=== PATIENT | female | born 1955 | race Caucasian/White ===

== ENCOUNTER 2020-07-25 10:35 | Day surgery (SDC) | payer OTHER, SELFPAY ==
[2020-07-22 11:39] LABS: BASOPHILS % (AUTO) 0.6 % (0.0-2.0); HEMATOCRIT 33.8 % (36-48); HEMOGLOBIN 11.1 g/dL (12.0-16.0); LYMPHOCYTES # (AUTO) 1.5 K/uL (1.0-5.5); LYMPHOCYTES % (AUTO) 22.4 % (20.5-51.5); MEAN CORPUSCULAR HEMOGLOBIN 28 pg (27-31); MEAN CORPUSCULAR HGB CONC 33 % (32-36); MEAN CORPUSCULAR VOLUME 84 fL (79.0-98.0); MONOCYTES # (AUTO) 0.4 K/uL (0.0-1.0); MONOCYTES % (AUTO) 5.9 % (1.7-9.3); NEUTROPHILS # (AUTO) 4.7 K/uL (1.8-7.7); NEUTROPHILS % (AUTO) 71.1 % (40.0-70.0); PLATELET COUNT (AUTO) 243 K/uL (130-430); RED BLOOD CELL COUNT(AUTO) 4.02 MIL/uL (4.2-6.2); RED CELL DISTRIBUTION WIDTH 14.7 % (9.0-15.0); WHITE BLOOD COUNT (AUTO) 6.6 K/uL (4.8-10.8)
[2020-07-22 11:46] LABS: BILIRUBIN,URINE NEGATIVE (NEGATIVE); BLOOD, URINE NEGATIVE (NEGATIVE); CLARITY/URINE CLEAR (CLEAR); COLOR,URINE YELLOW (YELLOW); GLUCOSE,URINE NEGATIVE (NEGATIVE); KETONES,URINE NEGATIVE (NEGATIVE); LEUKOCYTE ESTERASE ,URINE NEGATIVE (NEGATIVE); NITRITE, URINE NEGATIVE (NEGATIVE); PROTEIN URINE NEGATIVE (NEGATIVE); UROBILINOGEN,URINE 0.2 (0.2-1.0)
[2020-07-22 11:49] LABS: CALCIUM 9.4 mg/dL (8.4-11.0); CREATININE 0.82 mg/dL (0.55-1.30); POTASSIUM 4.2 mmol/L (3.5-5.1)
[2020-07-22 12:01] LABS: INR 0.9 (0.8-1.2); PROTHROMBIN TIME 9.4 SECS (9.5-12.5)
[~2020-07-25] VITALS: Ht 167.6 cm; Wt 58.5 kg
[~2020-07-25 10:35] MED LIST: GLIP10TA11 PO; GLU500 PO
[2020-07-25] MEDS ORDERED: LR 1,000 ML IV.SOLN IV ONE (11:41)
[2020-07-25] MEDS ORDERED: GLYCOPYRROLATE 0.2 MG/ML VIAL IJ ONE (11:41)
[2020-07-25] MEDS ORDERED: PROPOFOL 200MG/ 20ML VIAL (DIPRIVAN) IV ONE (11:41)
[2020-07-25] MEDS ORDERED: METOCLOPRAMIDE HCL 10 MG/2 ML VIAL IVP ONE (11:41)
[2020-07-25] MEDS ORDERED: ONDANSETRON HCL 4 MG/2 ML VIAL IVP ONE (11:41)
[2020-07-25] MEDS ORDERED: NS IRRIG SOLN 1000 ML IR ONE (11:41)
[2020-07-25] MEDS ORDERED: BUPIVACAINE /PF 0.25% 30 ML VIAL INJ ONE (11:41)
[2020-07-25] MEDS ORDERED: LIDOCAINE 1% 10 MG/ML, 20 ML MDV INJ ONE (11:41)
[2020-07-25] MEDS ORDERED: ePHEDrine sulfate 50 MG/ML VIAL IVP ONE (11:41)
[2020-07-25] MEDS ORDERED: KETOROLAC TROMETHAMINE 30 MG VIAL IVP ONE (11:41)
[2020-07-25] MEDS ORDERED: fentaNYL CITRATE/PF 100 MCG/2 ML AMP IVP ONE (11:41)
[2020-07-25] MEDS ORDERED: MIDAZOLAM HCL 5 MG/5 ML VIAL IVP ONE (11:41)
[2020-07-25] MEDS ORDERED: SEVOFLURANE 15 MIN GAS INH ONE (11:41)
[2020-07-25] MEDS ORDERED: KETOROLAC TROMETHAMINE 30 MG VIAL IVP PRN (12:30)
[2020-07-25] MEDS ORDERED: LR 1,000 ML IV SCH (12:30)
[2020-07-25] MEDS ORDERED: ONDANSETRON HCL 4 MG/2 ML VIAL IVP PRN (12:30)
[2020-07-25 13:42] VITALS: BP_SYST 138
== END 2020-07-25 14:10 | disposition home or self-care (01) ==
LOC: SDS 10:35 → SMU 10:36 → SDS 14:10
PROVIDERS: ATTEND Orthopaedic Surgery
DX: G56.01 Carpal tunnel syndrome, right upper limb (principal); E11.9 Type 2 diabetes mellitus without complications; Z20.822 Contact with and (suspected) exposure to COVID-19; Z79.01 Long term (current) use of anticoagulants; Z79.899 Other long term (current) drug therapy
CPT/HCPCS: 36415; 64721; 71046; 80048; 81003; 82962; 85025; 85610; 85730; 87086; 93005; J1885; J2001; J2250; J2405; J2704; J2765; J3010; J3490 ×2; J7120; U0003

== ENCOUNTER 2021-02-18 03:46 | Inpatient (IN) | payer OTHER, SELFPAY ==
[~2021-02-18] VITALS: Ht 165.1 cm; Wt 63.5 kg
[2021-02-18 03:46] VITALS: BP_SYST 164
--- NOTE | 2021-02-18 03:47 | NUR ---
# 20 gauge angiocath placed to RFA BY EMS. Use of asceptic technique. Opsite placed over site. Flushed with 10 cc of normal saline. No evidence of infiltration noted.
--- NOTE | 2021-02-18 03:50 | NUR ---
Patient to ER bed 3 to gown for evaluation. Side rails up.
--- NOTE | 2021-02-18 04:00 | NUR ---
PT BIB BLS FROM HOME C/O LEFT HIP PAIN AFTER MECHANICAL SLIP AND FALL WHILE GETTING OUT OF BED TO USE THE RESTROOM. +EXTERNALLY ROTATED, PULSES INTACT. PT WAS GIVEN 4MG MORPHINE BY EMS.
[2021-02-18] MEDS ORDERED: NACL 0.9% 1,000 ML IV ONE (04:15)
[2021-02-18] MEDS ORDERED: MORPHINE 2 MG/ML INJ. SYRINGE IVP ONE (04:15)
[2021-02-18] MEDS ORDERED: KETOROLAC TROMETHAMINE 15 MG VIAL IVP ONE (04:15)
--- NOTE | 2021-02-18 05:00 | NUR ---
# 16 FR Drake catheter with use of sterile technique. Immediate return of 200 cc PALE YELLOW urine noted. Bedside drainage bag placed below level of bladder. Urine sample collected and sent to lab. Pt tolerated procedure WELL. Patient unable to toilet self.
[2021-02-18 06:27] LABS: BASOPHILS % (AUTO) 0.4 % (0.0-2.0); HEMATOCRIT 28.9 % (36-48); HEMOGLOBIN 9.7 g/dL (12.0-16.0); LYMPHOCYTES # (AUTO) 1.6 K/uL (1.0-5.5); LYMPHOCYTES % (AUTO) 12.7 % (20.5-51.5); MEAN CORPUSCULAR HEMOGLOBIN 28 pg (27-31); MEAN CORPUSCULAR HGB CONC 33 % (32-36); MEAN CORPUSCULAR VOLUME 82 fL (79.0-98.0); MONOCYTES # (AUTO) 0.8 K/uL (0.0-1.0); MONOCYTES % (AUTO) 6.1 % (1.7-9.3); NEUTROPHILS % (AUTO) 80.8 % (40.0-70.0); PLATELET COUNT (AUTO) 211 K/uL (130-430); RED BLOOD CELL COUNT(AUTO) 3.52 MIL/uL (4.2-6.2); RED CELL DISTRIBUTION WIDTH 14.2 % (9.0-15.0); WHITE BLOOD COUNT (AUTO) 12.3 K/uL (4.8-10.8)
[2021-02-18 06:34] LABS: CALCIUM 8.6 mg/dL (8.4-11.0); CREATININE 0.64 mg/dL (0.55-1.30); POTASSIUM 4.1 mmol/L (3.5-5.1)
[2021-02-18 06:40] LABS: ALBUMIN 3.3 g/dL (3.4-4.8); TOTAL BILIRUBIN 0.3 mg/dL (0.0-1.0)
[2021-02-18 06:47] LABS: BILIRUBIN,URINE NEGATIVE (NEGATIVE); BLOOD, URINE NEGATIVE (NEGATIVE); CLARITY/URINE CLEAR (CLEAR); COLOR,URINE YELLOW (YELLOW); GLUCOSE,URINE NEGATIVE (NEGATIVE); KETONES,URINE NEGATIVE (NEGATIVE); LEUKOCYTE ESTERASE ,URINE NEGATIVE (NEGATIVE); NITRITE, URINE NEGATIVE (NEGATIVE); PH,URINE 5.5 (5.0-8.0); PROTEIN URINE NEGATIVE (NEGATIVE); UROBILINOGEN,URINE 0.2 (0.2-1.0)
--- NOTE | 2021-02-18 07:30 | NUR ---
RECEIVED PT IN [facility] AOX4. HERE FOR HIP FX. F/C DRAINING TO GRAVITY. NO ACUTE DISTRESS NOTED. SAFETY MAINTAINED.
[2021-02-18] MEDS ORDERED: fentaNYL CITRATE/PF 100 MCG/2 ML AMP IVP ONE (09:15)
[2021-02-18] MEDS ORDERED: ONDANSETRON HCL 4 MG/2 ML VIAL IVP ONE (09:15)
--- NOTE | 2021-02-18 09:30 | NUR ---
PT RESTING IN [place] NO CHANGES NOTED. SAFETY MAINTAINED.
[2021-02-18] MEDS ORDERED: MORPHINE 2 MG/ML INJ. SYRINGE IVP PRN (10:30)
[2021-02-18] MEDS ORDERED: LORazepam 2 MG/ML VIAL IVP PRN (10:30)
[2021-02-18] MEDS: D5/0.45 NS 1,000 ML IV SCH ×2 (10:38→18:20)
--- NOTE | 2021-02-18 10:45 | NUR ---
ADMITTING MD AT BEDSIDE FOR ASSESSMENT. NPO PENDING SURGICAL CONSULT.
[2021-02-18] MEDS ORDERED: GLUCOSE (DEXTROSE) ORAL GEL -Adults PO PRN (11:00)
[2021-02-18] MEDS ORDERED: DEXTROSE 50%-WATER 50 ML DISP.SYRIN IVP PRN (11:00)
[2021-02-18] MEDS ORDERED: D5W 1,000 ML IV PRN (11:00)
--- NOTE | 2021-02-18 15:49 | NUR ---
REPORT GIVEN TO JOSE ALFREDO WILLIAMSON. PT STABLE ON TX TO FLOOR.
[2021-02-18 16:04] VITALS: BP_SYST 143
[2021-02-18] MEDS: INSULIN REGULAR, HUMAN 100 UNITS/ML, 10 ML VIAL (humuLIN R) SUBCUT PRN (18:21)
[2021-02-18] MEDS: ONDANSETRON HCL 4 MG/2 ML VIAL IVP PRN (18:34)
--- NOTE | 2021-02-18 18:52 | NUR ---
LATE ENTRY DUE TO PT CARE 1530 ADMIT NOTE Received pt from ER to the floor with a diagnosis of LEFT HIP FRACTURE. Admission process initiated. patient oriented to pain management, safety and call light-teach back done. Plan of care discussed with patient. informed patient that I received a call from OR that her surgery is scheduled 02/19/21 at 1230 pm. patient has not been seen by surgeon as of writing
[2021-02-18 20:00] VITALS: BP_SYST 111
[2021-02-19] MEDS: ONDANSETRON HCL 4 MG/2 ML VIAL IVP PRN ×2 (01:03→05:09)
[2021-02-19] MEDS: MORPHINE 4 MG INJ. 4 MG/ML VIAL IVP PRN ×2 (01:06→05:12)
--- NOTE | 2021-02-19 01:06 | NUR ---
c/o pain Reporting severe pain 11/17; administered Morphine 4mg as ordered and Zofran for nausea Addendum: 02/19/21 at 0538 by Francie Jackson RN patient reports she did not get nausea, nor did she vomit
[2021-02-19 01:11] VITALS: BP_SYST 147
[2021-02-19] MEDS: INSULIN REGULAR, HUMAN 100 UNITS/ML, 10 ML VIAL (humuLIN R) SUBCUT PRN ×3 (01:36→17:47)
[2021-02-19] MEDS: D5/0.45 NS 1,000 ML IV SCH (03:43)
--- NOTE | 2021-02-19 03:48 | NUR ---
IVF IVF empty and hung new bag of D51/2NS; infusing well. No s/sx of infiltration noted, tolerating.
--- NOTE | 2021-02-19 05:30 | NUR ---
Morphine, Zofran, accucheck C/O severe pain 08/17 and administered Morphine as ordered also Zofran given for nausea. Accucheck result was 240mg/dL and covered per sliding scale.
--- NOTE | 2021-02-19 06:45 | NUR ---
closing note Patient resting in comfortable position. Resting w/eyes closed. IVF infusing well, no s/sx infiltration noted. Drake catheter drainage bag to gravity. Needs met throughout shift. Will endorse care
[2021-02-19 06:59] LABS: BASOPHILS % (AUTO) 0.3 % (0.0-2.0); HEMATOCRIT 26.3 % (36-48); HEMOGLOBIN 8.9 g/dL (12.0-16.0); LYMPHOCYTES # (AUTO) 1.3 K/uL (1.0-5.5); LYMPHOCYTES % (AUTO) 17.2 % (20.5-51.5); MEAN CORPUSCULAR HEMOGLOBIN 28 pg (27-31); MEAN CORPUSCULAR HGB CONC 34 % (32-36); MEAN CORPUSCULAR VOLUME 82 fL (79.0-98.0); MONOCYTES # (AUTO) 0.7 K/uL (0.0-1.0); NEUTROPHILS # (AUTO) 5.4 K/uL (1.8-7.7); NEUTROPHILS % (AUTO) 73.5 % (40.0-70.0); PLATELET COUNT (AUTO) 217 K/uL (130-430); RED BLOOD CELL COUNT(AUTO) 3.21 MIL/uL (4.2-6.2); WHITE BLOOD COUNT (AUTO) 7.4 K/uL (4.8-10.8)
[2021-02-19 07:28] LABS: ALBUMIN 2.7 g/dL (3.4-4.8); CREATININE 0.56 mg/dL (0.55-1.30); PHOSPHORUS 2.7 mg/dL (2.7-4.5); POTASSIUM 3.8 mmol/L (3.5-5.1); TOTAL BILIRUBIN 0.2 mg/dL (0.0-1.0)
[2021-02-19 08:00] VITALS: BP_SYST 139
[2021-02-19] MEDS: metFORMIN HCL 500 MG TABLET PO SCH (08:21)
[2021-02-19 08:42] LABS: INR 0.9 (0.8-1.2); PROTHROMBIN TIME 9.8 SECS (9.5-12.5)
--- NOTE | 2021-02-19 10:32 | NUR ---
Nutrition Update : Ronal Scale: 15 noted Pt admitted for L. Hip fracture. Diet: NPO BMI: 23.3 kg/m2 RD to follow per nutrition care standards.
[2021-02-19] MEDS ORDERED: fentaNYL CITRATE/PF 100 MCG/2 ML AMP IVP ONE (12:50)
[2021-02-19] MEDS ORDERED: PROPOFOL 200MG/ 20ML VIAL (DIPRIVAN) IV ONE (12:50)
[2021-02-19] MEDS ORDERED: ePHEDrine sulfate 50 MG/ML VIAL IVP ONE (12:50)
[2021-02-19] MEDS ORDERED: BUPIVACAINE /EPINEPHRINE/PF 0.25% 30 ML VIAL INJ ONE (12:50)
[2021-02-19] MEDS ORDERED: ONDANSETRON HCL 4 MG/2 ML VIAL IVP ONE (12:50)
[2021-02-19] MEDS ORDERED: SUGAMMADEX SODIUM 200 MG/2 ML VIAL IV ONE (12:50)
[2021-02-19] MEDS ORDERED: ROCURONIUM BROMIDE 10 MG/ML (ZEMURON) IV ONE (12:50)
[2021-02-19] MEDS ORDERED: LIDOCAINE 1% 10 MG/ML, 20 ML MDV INJ ONE (12:50)
[2021-02-19] MEDS ORDERED: NS 1000 ML IV.SOLN IV ONE (12:50)
[2021-02-19] MEDS ORDERED: MIDAZOLAM HCL 5 MG/5 ML VIAL IVP ONE (12:50)
[2021-02-19] MEDS ORDERED: KETOROLAC TROMETHAMINE 30 MG VIAL IVP ONE (12:50)
[2021-02-19] MEDS ORDERED: DESFLURANE 15 MIN GAS INH ONE (12:50)
[2021-02-19] MEDS ORDERED: ACETAMINOPHEN I.V. 1000 MG 100 ML IV ONE (13:23)
[2021-02-19] MEDS ORDERED: HYDROmorphone 1 MG/ML INJ. CARTRIDGE IVP PRN ×2 (14:00)
[2021-02-19] MEDS ORDERED: MIDAZOLAM HCL 2 MG/2 ML VIAL (VERSED) IVP PRN (14:00)
[2021-02-19] MEDS ORDERED: METOCLOPRAMIDE HCL 10 MG/2 ML VIAL IVP PRN (14:00)
[2021-02-19] MEDS ORDERED: MEPERIDINE HCL/PF 25 MG/ML DISP.SYRIN IVP PRN (14:00)
[2021-02-19] MEDS ORDERED: NALOXONE HCL 0.4 MG/ML AMP (NARCAN) IVP PRN (16:30)
[2021-02-19 17:17] VITALS: BP_SYST 140
[2021-02-19] MEDS: LR 1,000 ML IV SCH (18:07)
[2021-02-19] MEDS: ACETAMINOPHEN 325 MG TABLET PO PRN (18:23)
--- NOTE | 2021-02-19 18:53 | NUR ---
Outcome Summary Recieved pt from PACU s/o left hip surgery. VSS. Afebrile. Tynlenol x1 for lim. Neuro checks WDL, denies numbness/tingling, cap refill <3 sec, full ROM. Tolerating diet, BG monitored ACHS. All needs met, safety and comfort measures maintained, call light within reach. NR, RN
[2021-02-19 20:00] VITALS: BP_SYST 125
[2021-02-19] MEDS: DOCUSATE SODIUM 100 MG CAPSULE PO SCH (21:00)
[2021-02-19 21:17] LABS: HEMATOCRIT 23.3 % (36-48)
[2021-02-19] MEDS: CEFAZOLIN 1 GM IVPB PREMIX 50 ML IV SCH (21:40)
[2021-02-20] MEDS: LR 1,000 ML IV SCH ×3 (00:30→20:37)
[2021-02-20] MEDS: ACETAMINOPHEN 325 MG TABLET PO PRN ×2 (01:19→06:27)
[2021-02-20 01:22] VITALS: BP_SYST 120
[2021-02-20] MEDS: INSULIN REGULAR, HUMAN 100 UNITS/ML, 10 ML VIAL (humuLIN R) SUBCUT PRN ×3 (01:22→17:50)
[2021-02-20] MEDS: D5/0.45 NS 1,000 ML IV SCH (02:00)
[2021-02-20] MEDS: CEFAZOLIN 1 GM IVPB PREMIX 50 ML IV SCH (06:27)
[2021-02-20 07:49] LABS: BASOPHILS % (AUTO) 0.4 % (0.0-2.0); HEMOGLOBIN 7.3 g/dL (12.0-16.0); LYMPHOCYTES # (AUTO) 1.4 K/uL (1.0-5.5); LYMPHOCYTES % (AUTO) 22.9 % (20.5-51.5); MEAN CORPUSCULAR HEMOGLOBIN 28 pg (27-31); MEAN CORPUSCULAR HGB CONC 34 % (32-36); MEAN CORPUSCULAR VOLUME 82 fL (79.0-98.0); MONOCYTES # (AUTO) 0.6 K/uL (0.0-1.0); NEUTROPHILS % (AUTO) 66.7 % (40.0-70.0); PLATELET COUNT (AUTO) 181 K/uL (130-430); RED BLOOD CELL COUNT(AUTO) 2.61 MIL/uL (4.2-6.2); WHITE BLOOD COUNT (AUTO) 5.9 K/uL (4.8-10.8)
[2021-02-20 07:51] VITALS: BP_SYST 126
[2021-02-20 08:07] LABS: CALCIUM 8.1 mg/dL (8.4-11.0); CREATININE 0.54 mg/dL (0.55-1.30); POTASSIUM 3.7 mmol/L (3.5-5.1)
[2021-02-20 08:23] LABS: HEMATOCRIT 21.4 % (36-48)
[2021-02-20] MEDS: DOCUSATE SODIUM 100 MG CAPSULE PO SCH ×2 (08:24→20:18)
[2021-02-20] MEDS: ENOXAPARIN SODIUM 40 MG/0.4 ML SYRINGE SUBCUT SCH (08:25)
[2021-02-20] MEDS: metFORMIN HCL 500 MG TABLET PO SCH (08:29)
[2021-02-20] MEDS: HYDROcodone/ACETAMIN 5-325 MG TAB (NORCO/ VICODIN) PO PRN ×3 (08:53→20:19)
--- NOTE | 2021-02-20 08:58 | NUR ---
ATTENDING MD DR REED WAS CALLED RE: CRITICAL HEMOGRAM.
[2021-02-20 11:53] VITALS: BP_SYST 126
[2021-02-20] MEDS ORDERED: NALOXONE HCL 0.4 MG/ML AMP (NARCAN) IVP PRN (14:30)
--- NOTE | 2021-02-20 14:34 | NUR ---
Discharge Planning: DCP faxed pt referral to [facility] [phone] DCP to follow up.
[2021-02-20 15:36] VITALS: BP_SYST 127
--- NOTE | 2021-02-20 18:30 | NUR ---
Outcome Summary A/Ox4, neuro checks WDL, denies numbness/tingling. Lincoln x2 for left hip pain with effective relief. Worked with PT, tolerated standing at edge of bed with fww. FC intact, dependent to drainage, adequate urine output. Left hip dressing c/d/i. IVFs continued, PIV dressing c/d/i. All needs met, safety and comfort measures maintained, call light within reach. NR, RN
[2021-02-20] MEDS: FERROUS GLUCONATE 324 MG TABLET PO SCH (20:18)
[2021-02-21] MEDS: INSULIN REGULAR, HUMAN 100 UNITS/ML, 10 ML VIAL (humuLIN R) SUBCUT PRN ×2 (05:57→17:01)
[2021-02-21] MEDS: LR 1,000 ML IV SCH (05:58)
--- NOTE | 2021-02-21 07:31 | NUR ---
PHYSICAL THERAPY CO-SIGN The Physical Therapy Progress Notes documented by Hourly Team Members have been reviewed. Reviewed/Co-Signed by: Rolan Ovalles Documentation Done by: JANES CARR PTA Addendum: 02/21/21 at 0732 by Rolan Ovalles PT Amended: Links added.
[2021-02-21 08:00] VITALS: BP_SYST 131
[2021-02-21] MEDS: DOCUSATE SODIUM 100 MG CAPSULE PO SCH ×2 (08:27→21:00)
[2021-02-21] MEDS: metFORMIN HCL 500 MG TABLET PO SCH (08:28)
[2021-02-21] MEDS: ENOXAPARIN SODIUM 40 MG/0.4 ML SYRINGE SUBCUT SCH (08:32)
[2021-02-21] MEDS: FERROUS GLUCONATE 324 MG TABLET PO SCH ×2 (09:00→21:23)
[2021-02-21] MEDS: HYDROcodone/ACETAMIN 5-325 MG TAB (NORCO/ VICODIN) PO PRN (12:51)
[2021-02-21] MEDS: NORMAL SALINE 5 ML DISP.SYRIN IVF SCH ×2 (14:00→21:27)
[2021-02-21 16:20] VITALS: BP_SYST 126
[2021-02-21 16:50] LABS: BASOPHILS % (AUTO) 0.3 % (0.0-2.0); LYMPHOCYTES % (AUTO) 16.2 % (20.5-51.5); MEAN CORPUSCULAR HEMOGLOBIN 28 pg (27-31); MEAN CORPUSCULAR HGB CONC 34 % (32-36); MEAN CORPUSCULAR VOLUME 82 fL (79.0-98.0); MONOCYTES # (AUTO) 0.6 K/uL (0.0-1.0); MONOCYTES % (AUTO) 10.6 % (1.7-9.3); NEUTROPHILS # (AUTO) 4.4 K/uL (1.8-7.7); NEUTROPHILS % (AUTO) 72.9 % (40.0-70.0); PLATELET COUNT (AUTO) 193 K/uL (130-430); RED BLOOD CELL COUNT(AUTO) 2.37 MIL/uL (4.2-6.2); RED CELL DISTRIBUTION WIDTH 14.2 % (9.0-15.0); WHITE BLOOD COUNT (AUTO) 6.1 K/uL (4.8-10.8)
[2021-02-21 17:19] LABS: HEMATOCRIT 19.5 % (36-48)
[2021-02-21 17:32] LABS: ALBUMIN 2.1 g/dL (3.4-4.8); CALCIUM 8.1 mg/dL (8.4-11.0); CREATININE 0.53 mg/dL (0.55-1.30); POTASSIUM 3.4 mmol/L (3.5-5.1); TOTAL BILIRUBIN 0.5 mg/dL (0.0-1.0)
--- NOTE | 2021-02-21 18:00 | NUR ---
alert, oriented and appropriate. Colostomy bursts x 2 , new colostomy placed. Expected to get out of bed, walked with PT, asking for pain meds, NORCO , 2 tabs given at 1300. When PT ready for her, still eating food brought to her from family, then no ambulation as expected. 1630 H & H trending down further today, 6.07/27, attending wants her to have one unit of PRBC , when available. since patient just had surgery on Feb 19, no need for type and screen, double checked with bb
[2021-02-21 20:00] VITALS: BP_SYST 142
[2021-02-21] MEDS: ACETAMINOPHEN 325 MG TABLET PO PRN (21:22)
--- NOTE | 2021-02-21 22:44 | NUR ---
blood transfusion started at 0840pm, temp at 99.2 rechecked after 15 min t- 99.8, acetaminophen given
[2021-02-22] VITALS: BP_SYST 142
[2021-02-22] MEDS: INSULIN REGULAR, HUMAN 100 UNITS/ML, 10 ML VIAL (humuLIN R) SUBCUT PRN ×2 (00:13→12:46)
--- NOTE | 2021-02-22 00:44 | NUR ---
blood transfusion done at 2350
[2021-02-22 04:00] VITALS: BP_SYST 148
[2021-02-22] MEDS: NORMAL SALINE 5 ML DISP.SYRIN IVF SCH ×3 (06:45→22:00)
[2021-02-22 07:44] LABS: BASOPHILS % (AUTO) 0.5 % (0.0-2.0); HEMATOCRIT 24.1 % (36-48); HEMOGLOBIN 8.1 g/dL (12.0-16.0); LYMPHOCYTES # (AUTO) 0.9 K/uL (1.0-5.5); LYMPHOCYTES % (AUTO) 16.1 % (20.5-51.5); MEAN CORPUSCULAR HEMOGLOBIN 28 pg (27-31); MEAN CORPUSCULAR HGB CONC 34 % (32-36); MEAN CORPUSCULAR VOLUME 83 fL (79.0-98.0); MONOCYTES # (AUTO) 0.4 K/uL (0.0-1.0); MONOCYTES % (AUTO) 7.9 % (1.7-9.3); NEUTROPHILS % (AUTO) 75.5 % (40.0-70.0); PLATELET COUNT (AUTO) 190 K/uL (130-430); RED BLOOD CELL COUNT(AUTO) 2.91 MIL/uL (4.2-6.2); RED CELL DISTRIBUTION WIDTH 13.9 % (9.0-15.0); WHITE BLOOD COUNT (AUTO) 5.4 K/uL (4.8-10.8)
[2021-02-22 08:00] VITALS: BP_SYST 140
[2021-02-22 08:12] LABS: CALCIUM 8.4 mg/dL (8.4-11.0); CREATININE 0.42 mg/dL (0.55-1.30); POTASSIUM 3.6 mmol/L (3.5-5.1)
[2021-02-22] MEDS: FERROUS GLUCONATE 324 MG TABLET PO SCH ×2 (08:57→21:00)
[2021-02-22] MEDS: metFORMIN HCL 500 MG TABLET PO SCH (08:58)
[2021-02-22] MEDS: DOCUSATE SODIUM 100 MG CAPSULE PO SCH ×2 (09:00→21:10)
[2021-02-22] MEDS: ENOXAPARIN SODIUM 40 MG/0.4 ML SYRINGE SUBCUT SCH (09:09)
[2021-02-22] MEDS: HYDROcodone/ACETAMIN 5-325 MG TAB (NORCO/ VICODIN) PO PRN ×3 (09:10→18:20)
[2021-02-22 12:38] VITALS: BP_SYST 145
--- NOTE | 2021-02-22 14:00 | NUR ---
TEMP 100.[address] REED RE SPIKE OF LOW GRADE FEVER, BLOOD CULTURE ORDERED, AND UA/UC ORDERED.
--- NOTE | 2021-02-22 15:00 | NUR ---
NOTES 0800- COLOSTOMY BAG CHANGED, LEFT HIP DRESSING INTACT. NEUROVASCULAR CHECKED DONE, GOOD PEDAL PULSE, MOVED AND WIGGLE BOTH TOES 1200- NEUROVASCULAR CHECKED DONE STILL WITHIN NORMAL LIMITS. ABLE TO URINATE WITH BEDPAN, P. THERAPY ALREADY GET UP THE PATIENT. 1800- NEUROVASCULAR CHECKED DONE, ABLE TO WIGGLE AND MOVED BOTH TOES, GOOD PEDAL PULSE. REPOSITIONED AT TIMES.
[2021-02-22 16:52] VITALS: BP_SYST 142
[2021-02-22 20:00] VITALS: BP_SYST 130
[2021-02-22 20:11] LABS: BILIRUBIN,URINE NEGATIVE (NEGATIVE); BLOOD, URINE NEGATIVE (NEGATIVE); CLARITY/URINE CLEAR (CLEAR); COLOR,URINE YELLOW (YELLOW); GLUCOSE,URINE NEGATIVE (NEGATIVE); KETONES,URINE TRACE (NEGATIVE); LEUKOCYTE ESTERASE ,URINE 1+ (NEGATIVE); NITRITE, URINE NEGATIVE (NEGATIVE); PROTEIN URINE TRACE (NEGATIVE); UROBILINOGEN,URINE 0.2 (0.2-1.0)
[2021-02-22 20:40] LABS: WBC,URINE 20-50 /HPF (0-3)
[2021-02-22 20:41] LABS: BACTERIA,URINE MODERATE /HPF (None Seen); MUCUS,URINE None Seen /LPF (None Seen)
[2021-02-22] MEDS: TEMAZEPAM 15 MG CAPSULE PO PRN (21:10)
[2021-02-23] VITALS: BP_SYST 130
[2021-02-23] MEDS: HYDROcodone/ACETAMIN 5-325 MG TAB (NORCO/ VICODIN) PO PRN ×5 (01:53→21:29)
[2021-02-23] MEDS: NORMAL SALINE 5 ML DISP.SYRIN IVF SCH ×3 (06:24→21:37)
[2021-02-23] MEDS: LEVOTHYROXINE SODIUM 0.15 MG TABLET PO SCH ×2 (06:24→06:42)
[2021-02-23] MEDS: DOCUSATE SODIUM 100 MG CAPSULE PO SCH ×2 (09:00→21:27)
[2021-02-23] MEDS: metFORMIN HCL 500 MG TABLET PO SCH (09:37)
[2021-02-23] MEDS: FERROUS GLUCONATE 324 MG TABLET PO SCH ×2 (09:37→21:28)
[2021-02-23] MEDS: ENOXAPARIN SODIUM 40 MG/0.4 ML SYRINGE SUBCUT SCH (09:39)
[2021-02-23 10:00] VITALS: BP_SYST 110
--- NOTE | 2021-02-23 11:16 | NUR ---
Dietitian Recommendations * [facility], Glucerna BID, Aren BID (supplements yield 620 kcal/day, 25 gm protein/day) * Encourage increase PO intakes LP, RD Please refer to Nutrition Assessment for details. Addendum: 02/23/21 at [address] Amended: Links added.
[2021-02-23 12:27] VITALS: BP_SYST 135
[2021-02-23] MEDS: INSULIN REGULAR, HUMAN 100 UNITS/ML, 10 ML VIAL (humuLIN R) SUBCUT PRN (12:32)
--- NOTE | 2021-02-23 15:45 | NUR ---
CM: S/w Codie at [facility] , auth from [facility] is pending. She will f/u tomorrow.
[2021-02-23 16:31] VITALS: BP_SYST 126
--- NOTE | 2021-02-23 17:00 | NUR ---
NOTES 0800- NOTED WITH RASHES LEFT BACK AREA, STATED SHE WAS SOAKED WITH URINE FROM LAST NIGHT. APPLIED OINTMENT, PUT PILLOW ON LEFT SIDE AREA, OF THE BODY, NOTED LEFT HIP WITH EDEMA S/P ORIF 1200- SEEN BY DR REED MADE AWARE OF POSITIVE UA RESULTS 1800- DR ELIZALDE CAME AND CHANGED DRESSING OF PATIENT ON LEFT HIP.
[2021-02-23] MEDS: cefTRIAXone 1 GM in D5W 50 ML IV SCH (18:11)
[2021-02-23 20:00] VITALS: BP_SYST 135
--- NOTE | 2021-02-23 20:10 | NUR ---
D: Received report from mena WILLIAMSON. Pt AAOX4, pt denies any pain or distress. Ostomy supplies at bedside. A: Oriented to room, call light within reach. R: Pt currently stable.
[2021-02-23 20:43] VITALS: BP_SYST 122
[2021-02-23] MEDS: TEMAZEPAM 15 MG CAPSULE PO PRN (21:30)
[2021-02-24] MEDS: INSULIN REGULAR, HUMAN 100 UNITS/ML, 10 ML VIAL (humuLIN R) SUBCUT PRN ×3 (00:57→17:43)
[2021-02-24 01:13] VITALS: BP_SYST 135
[2021-02-24] MEDS: NORMAL SALINE 5 ML DISP.SYRIN IVF SCH ×3 (06:03→21:42)
[2021-02-24] MEDS: LEVOTHYROXINE SODIUM 0.15 MG TABLET PO SCH (06:12)
--- NOTE | 2021-02-24 07:11 | NUR ---
Closing Note D: Pt resting in bed. IV fluids running, platt in place draining. GCS 14, no c/o of pain or distress. A: No acute events overnight. R: Will endorsed POC and orders. Addendum: 02/24/21 at 0718 by Fifty Nine director of field sales Disregard above note, entered in error.
--- NOTE | 2021-02-24 07:18 | NUR ---
Closing Note D: Pt resting in bed, no c/o of pain or distress. Left hip dressing to be changed today by physician. Bilateral pedal pulses +2, normal. Leg sensation intact, both extremities warm. GCS 15. A: Will endorsed POC and orders. R: No acute events overnight.
--- NOTE | 2021-02-24 08:16 | NUR ---
PHYSICAL THERAPY CO-SIGN The Physical Therapy Progress Notes documented by Leather Sorter have been reviewed. Reviewed/Co-Signed by: Rolan Ovalles Documentation Done by: RILEY GÓMEZ PTA Addendum: 02/24/21 at 0816 by Rolan Ovalles PT Amended: Links added.
--- NOTE | 2021-02-24 08:16 | NUR ---
PHYSICAL THERAPY CO-SIGN The Physical Therapy Progress Notes documented by Flight Readiness Technician have been reviewed. Reviewed/Co-Signed by: Rolan Ovalles Documentation Done by: JANES CARR PTA Addendum: 02/24/21 at 0816 by Rolan Ovalles PT Amended: Links added.
[2021-02-24 08:34] LABS: BASOPHILS % (AUTO) 0.4 % (0.0-2.0); HEMATOCRIT 27.6 % (36-48); HEMOGLOBIN 9.1 g/dL (12.0-16.0); LYMPHOCYTES # (AUTO) 0.9 K/uL (1.0-5.5); LYMPHOCYTES % (AUTO) 21.5 % (20.5-51.5); MEAN CORPUSCULAR HEMOGLOBIN 28 pg (27-31); MEAN CORPUSCULAR HGB CONC 33 % (32-36); MEAN CORPUSCULAR VOLUME 83 fL (79.0-98.0); MONOCYTES # (AUTO) 0.5 K/uL (0.0-1.0); NEUTROPHILS # (AUTO) 2.8 K/uL (1.8-7.7); NEUTROPHILS % (AUTO) 66.1 % (40.0-70.0); PLATELET COUNT (AUTO) 293 K/uL (130-430); RED BLOOD CELL COUNT(AUTO) 3.31 MIL/uL (4.2-6.2); RED CELL DISTRIBUTION WIDTH 13.9 % (9.0-15.0); WHITE BLOOD COUNT (AUTO) 4.2 K/uL (4.8-10.8)
[2021-02-24 08:37] LABS: ALBUMIN 2.1 g/dL (3.4-4.8); CALCIUM 8.4 mg/dL (8.4-11.0); CREATININE 0.46 mg/dL (0.55-1.30); TOTAL BILIRUBIN 0.6 mg/dL (0.0-1.0)
[2021-02-24] MEDS: DOCUSATE SODIUM 100 MG CAPSULE PO SCH ×2 (09:00→21:41)
[2021-02-24] MEDS: HYDROcodone/ACETAMIN 5-325 MG TAB (NORCO/ VICODIN) PO PRN ×3 (09:11→21:42)
[2021-02-24] MEDS: metFORMIN HCL 500 MG TABLET PO SCH (09:13)
[2021-02-24] MEDS: ENOXAPARIN SODIUM 40 MG/0.4 ML SYRINGE SUBCUT SCH (09:15)
[2021-02-24] MEDS: FERROUS GLUCONATE 324 MG TABLET PO SCH ×2 (09:17→21:42)
[2021-02-24 09:24] LABS: HEMOGLOBIN 6.6 g/dL (12.0-16.0)
[2021-02-24 09:33] VITALS: BP_SYST 109
[2021-02-24 09:45] LABS: C-REACTIVE PROTEIN QUANT 7.8 mg/dL (0-0.5)
[2021-02-24 10:20] LABS: ERYTHROCYTE SEDIMENTATION RATE 100 MM/HR (0-20)
[2021-02-24 11:45] VITALS: BP_SYST 120
--- NOTE | 2021-02-24 12:45 | NUR ---
Discharge Planning: DCP spoke to Tavares at [facility] [phone] following up on [employer] auth. Tavares stated at 11:04 Latricia Barraza in dept with [facility], auth still pending.
[2021-02-24] MEDS: cefTRIAXone 1 GM in D5W 50 ML IV SCH (14:43)
--- NOTE | 2021-02-24 15:31 | NUR ---
CM: S/w Latricia at [facility] , auth from [facility] is pending.
[2021-02-24 16:33] VITALS: BP_SYST 123
[2021-02-24] MEDS: TEMAZEPAM 15 MG CAPSULE PO PRN (21:42)
[2021-02-24 22:31] VITALS: BP_SYST 125
[2021-02-25 00:55] VITALS: BP_SYST 152
[2021-02-25] MEDS: NORMAL SALINE 5 ML DISP.SYRIN IVF SCH ×3 (05:48→22:20)
[2021-02-25] MEDS: LEVOTHYROXINE SODIUM 0.15 MG TABLET PO SCH (06:30)
[2021-02-25] MEDS: INSULIN REGULAR, HUMAN 100 UNITS/ML, 10 ML VIAL (humuLIN R) SUBCUT PRN ×2 (06:35→23:15)
--- NOTE | 2021-02-25 07:53 | NUR ---
PHYSICAL THERAPY CO-SIGN The Physical Therapy Progress Notes documented by Asphalt Screed Operator have been reviewed. Reviewed/Co-Signed by: Rolan Ovalles Documentation Done by: JANES CARR PTA Addendum: 02/25/21 at 0754 by Rolan Ovalles PT Amended: Links added.
--- NOTE | 2021-02-25 09:27 | NUR ---
Discharge Planning: DCP spoke to Maame at [facility] [phone] following up on [employer] sincere. Per [facility] auth was received, ANDREY Bautista will call with room pending discharges. Addendum: 02/25/21 at 1502 by Shayy Sands DP [facility] [phone] declined pt, covid positive. DCP faxed pt referral to [facility] [place] [phone].
[2021-02-25] MEDS: DOCUSATE SODIUM 100 MG CAPSULE PO SCH ×2 (09:44→22:18)
[2021-02-25] MEDS: metFORMIN HCL 500 MG TABLET PO SCH (09:47)
[2021-02-25] MEDS: ENOXAPARIN SODIUM 40 MG/0.4 ML SYRINGE SUBCUT SCH (09:49)
[2021-02-25] MEDS: FERROUS GLUCONATE 324 MG TABLET PO SCH ×2 (09:54→22:18)
[2021-02-25 13:23] VITALS: BP_SYST 138
--- NOTE | 2021-02-25 13:44 | NUR ---
Patient tested (+) for Covid-called [facility] murkkocrji-[phone]-spoke to Bess-they cannot accept patient because of positive covid status
[2021-02-25] MEDS: HYDROcodone/ACETAMIN 5-325 MG TAB (NORCO/ VICODIN) PO PRN ×2 (14:47→22:45)
[2021-02-25 17:59] VITALS: BP_SYST 126
--- NOTE | 2021-02-25 20:26 | NUR ---
pt c/o no dinner tray - endorsed to CN and dinner tray delivered - meal hot. after a few minutes pt advised that she is to be moved to room 106B due to need for extra beds for incoming patients and that there are not enough beds to accommodate those pt's. pt then began asking if it is a "covid room". anticipating attempts to defer moving CN was asked to speak w pt. Addendum: 02/25/21 at 2326 by Seven geriatric social worker pt tolerated room change well. pt ate about 50% of dinner. pt given HS meds - refused colace - also given temazepam and vicodin per pt request. pt given H2O as per request. pt also assisted with colostomy care and bedpan. fingerstick = 280, refused coverage for now. will recheck in a.m. (around 0500). call light in reach, bed in low position, wheels locked. no c/o sob/cough.
[2021-02-25] MEDS: TEMAZEPAM 15 MG CAPSULE PO PRN (22:44)
[2021-02-26] MEDS: NORMAL SALINE 5 ML DISP.SYRIN IVF SCH ×3 (06:57→21:23)
[2021-02-26 07:15] LABS: BASOPHILS % (AUTO) 0.5 % (0.0-2.0); HEMATOCRIT 26.9 % (36-48); LYMPHOCYTES # (AUTO) 1.1 K/uL (1.0-5.5); MEAN CORPUSCULAR HEMOGLOBIN 28 pg (27-31); MEAN CORPUSCULAR HGB CONC 33 % (32-36); MEAN CORPUSCULAR VOLUME 84 fL (79.0-98.0); MONOCYTES # (AUTO) 0.5 K/uL (0.0-1.0); MONOCYTES % (AUTO) 11.6 % (1.7-9.3); NEUTROPHILS # (AUTO) 2.7 K/uL (1.8-7.7); NEUTROPHILS % (AUTO) 61.9 % (40.0-70.0); PLATELET COUNT (AUTO) 342 K/uL (130-430); RED BLOOD CELL COUNT(AUTO) 3.21 MIL/uL (4.2-6.2); RED CELL DISTRIBUTION WIDTH 14.2 % (9.0-15.0); WHITE BLOOD COUNT (AUTO) 4.4 K/uL (4.8-10.8)
[2021-02-26] MEDS: INSULIN REGULAR, HUMAN 100 UNITS/ML, 10 ML VIAL (humuLIN R) SUBCUT PRN ×2 (07:17→12:04)
[2021-02-26] MEDS: LEVOTHYROXINE SODIUM 0.15 MG TABLET PO SCH (07:21)
[2021-02-26 08:00] VITALS: BP_SYST 129
[2021-02-26 08:29] LABS: CALCIUM 8.6 mg/dL (8.4-11.0); CREATININE 0.52 mg/dL (0.55-1.30); POTASSIUM 4.4 mmol/L (3.5-5.1)
[2021-02-26 09:23] LABS: ERYTHROCYTE SEDIMENTATION RATE 97 MM/HR (0-20)
[2021-02-26] MEDS ORDERED: ACET325T PO (09:43)
[2021-02-26] MEDS ORDERED: LOVI40 SUBCUT (09:43)
[2021-02-26] MEDS ORDERED: FERR324T22 PO (09:43)
[2021-02-26] MEDS ORDERED: DOCU-144 PO (09:43)
[2021-02-26] MEDS ORDERED: LEVO150T PO (09:43)
[2021-02-26] MEDS: metFORMIN HCL 500 MG TABLET PO SCH (10:04)
[2021-02-26] MEDS: ENOXAPARIN SODIUM 40 MG/0.4 ML SYRINGE SUBCUT SCH (10:04)
[2021-02-26] MEDS: DOCUSATE SODIUM 100 MG CAPSULE PO SCH ×2 (10:04→20:58)
[2021-02-26] MEDS: FERROUS GLUCONATE 324 MG TABLET PO SCH ×2 (10:04→20:58)
[2021-02-26] MEDS: HYDROcodone/ACETAMIN 5-325 MG TAB (NORCO/ VICODIN) PO PRN ×3 (12:18→21:22)
[2021-02-26 12:55] LABS: C-REACTIVE PROTEIN QUANT 2.9 mg/dL (0-0.5)
--- NOTE | 2021-02-26 15:03 | NUR ---
Discharge Planning: LORA followed up Corine at [facility] [phone], auth was received pt will go to Rm 8D. BERNARDOP made CM aware.
[2021-02-26 16:00] VITALS: BP_SYST 123
--- NOTE | 2021-02-26 18:41 | NUR ---
Outcome Summary Pt resting comfortably in bed, nuero checks WDL. VSS. Afebrile. Premedicated with [place] for PT, tolerating sitting in chair. Hip dressing changed. Tolerating diet, BG monitored ACHS. Voiding via bedpan, colostomy intact and draining. Encouraged to self turn q2. All needs met, safety and comfort measures maintained, call light within reach. NR, RN.
[2021-02-26 20:00] VITALS: BP_SYST 110
[2021-02-26] MEDS: TEMAZEPAM 15 MG CAPSULE PO PRN (21:21)
[2021-02-27] VITALS: BP_SYST 112
[2021-02-27] MEDS: INSULIN REGULAR, HUMAN 100 UNITS/ML, 10 ML VIAL (humuLIN R) SUBCUT PRN ×2 (00:23→12:34)
[2021-02-27 04:00] VITALS: BP_SYST 115
[2021-02-27] MEDS: NORMAL SALINE 5 ML DISP.SYRIN IVF SCH ×3 (06:05→22:02)
[2021-02-27] MEDS: LEVOTHYROXINE SODIUM 0.15 MG TABLET PO SCH (06:33)
--- NOTE | 2021-02-27 07:56 | NUR ---
PHYSICAL THERAPY CO-SIGN The Physical Therapy Progress Notes documented by Combine Mechanic have been reviewed. Reviewed/Co-Signed by: Rolan Ovalles Documentation Done by: JANES CARR PTA Addendum: 02/27/21 at 0757 by Rolan Ovalles PT Amended: Links added.
--- NOTE | 2021-02-27 07:57 | NUR ---
PHYSICAL THERAPY CO-SIGN The Physical Therapy Progress Notes documented by Side Seam Machine Operator have been reviewed. Reviewed/Co-Signed by: Rolan Ovalles Documentation Done by: JANES CARR PTA Addendum: 02/27/21 at 0757 by Rolan Ovalles PT Amended: Links added.
[2021-02-27 08:00] VITALS: BP_SYST 131
--- NOTE | 2021-02-27 08:11 | NUR ---
PHYSICAL THERAPY CO-SIGN The Physical Therapy Progress Notes documented by Plumbing Inspector have been reviewed. Reviewed/Co-Signed by: Rolan Ovalles Documentation Done by: JANES CARR PTA Addendum: 02/27/21 at 0812 by Rolan Ovalles PT Amended: Links added.
[2021-02-27] MEDS: ENOXAPARIN SODIUM 40 MG/0.4 ML SYRINGE SUBCUT SCH (09:00)
[2021-02-27] MEDS: DOCUSATE SODIUM 100 MG CAPSULE PO SCH ×2 (09:00→22:15)
[2021-02-27] MEDS: metFORMIN HCL 500 MG TABLET PO SCH (09:00)
[2021-02-27] MEDS: FERROUS GLUCONATE 324 MG TABLET PO SCH ×2 (09:00→22:15)
--- NOTE | 2021-02-27 11:48 | NUR ---
Discharge Planning: [facility] received a call from Corine at [facility] [phone] Rm 8D is no longer available, due to a positive resident. Addendum: 02/27/21 at 1210 by Shayy Sands DP DCP received a call from Judith [phone] from [facility], stating patient called upset. Patient stated she did not want to go SNF. DCP made CM aware.
[2021-02-27] MEDS: HYDROcodone/ACETAMIN 5-325 MG TAB (NORCO/ VICODIN) PO PRN ×2 (12:35→22:25)
[2021-02-27 16:00] VITALS: BP_SYST 135
--- NOTE | 2021-02-27 16:07 | NUR ---
Spoke w/ patient-she stated she will not leave the hospital until she feels safe doing so. She wants to stay until her covid test is negative ,and it has been 10 days ,so she can go to [facility] for rehab. She stated Judith from [facility] said she could stay [phone]-because we gave her covid and that is keeping her from going to [facility]. I will follow up tomorrow with Judith from [facility] to get authorization for the patient to stay at [facility] until [facility] will accept her for rehab.
[2021-02-27 20:00] VITALS: BP_SYST 130
[2021-02-27] MEDS: TEMAZEPAM 15 MG CAPSULE PO PRN (22:25)
[2021-02-28] VITALS (7 sets, daily range): BP systolic 114–146
--- NOTE | 2021-02-28 | NUR ---
BS 241; PT REFUSED INSULIN ADMINISTRATION AT THIS TIME. R&B EXPLAINED
[2021-02-28] MEDS: NORMAL SALINE 5 ML DISP.SYRIN IVF SCH ×3 (06:07→23:28)
--- NOTE | 2021-02-28 06:10 | NUR ---
BS 178
[2021-02-28] MEDS: INSULIN REGULAR, HUMAN 100 UNITS/ML, 10 ML VIAL (humuLIN R) SUBCUT PRN ×2 (06:16→23:36)
[2021-02-28] MEDS: LEVOTHYROXINE SODIUM 0.15 MG TABLET PO SCH (06:20)
--- NOTE | 2021-02-28 07:19 | NUR ---
PHYSICAL THERAPY CO-SIGN The Physical Therapy Progress Notes documented by Aluminum Siding Mechanic have been reviewed. Reviewed/Co-Signed by: Rolan Ovalles Documentation Done by: JANES CARR PTA Addendum: 02/28/21 at 0723 by Rolan Ovalles PT Amended: Links added.
--- NOTE | 2021-02-28 07:20 | NUR ---
PHYSICAL THERAPY CO-SIGN The Physical Therapy Progress Notes documented by Wire Technician have been reviewed. Reviewed/Co-Signed by: Rolan Ovalles Documentation Done by: JANES CARR PTA Addendum: 02/28/21 at 0723 by Rolan Ovalles PT Amended: Links added.
--- NOTE | 2021-02-28 07:30 | NUR ---
Assumed care of pt and pt is in bed resting with no s/s of distress. Brought breakfast to pt. Gave pt a bed adame to urinate first. Bed adame emptied. Pt's skin is intact. IV line intact. Colostomy intact. VSS. A&Ox4. Pt has no c/o. Fresh water given. Room clear of clutter.
[2021-02-28 08:33] LABS: BASOPHILS % (AUTO) 0.9 % (0.0-2.0); EOSINOPHILS % (AUTO) 0.1 % (0.0-4.0); HEMATOCRIT 27.8 % (36-48); HEMOGLOBIN 9.3 g/dL (12.0-16.0); LYMPHOCYTES # (AUTO) 1.4 K/uL (1.0-5.5); LYMPHOCYTES % (AUTO) 24.3 % (20.5-51.5); MEAN CORPUSCULAR HEMOGLOBIN 28 pg (27-31); MEAN CORPUSCULAR HGB CONC 34 % (32-36); MEAN CORPUSCULAR VOLUME 84 fL (79.0-98.0); MONOCYTES # (AUTO) 0.5 K/uL (0.0-1.0); MONOCYTES % (AUTO) 9.7 % (1.7-9.3); NEUTROPHILS # (AUTO) 3.6 K/uL (1.8-7.7); PLATELET COUNT (AUTO) 414 K/uL (130-430); RED BLOOD CELL COUNT(AUTO) 3.31 MIL/uL (4.2-6.2); RED CELL DISTRIBUTION WIDTH 14.3 % (9.0-15.0); WHITE BLOOD COUNT (AUTO) 5.6 K/uL (4.8-10.8)
--- NOTE | 2021-02-28 09:00 | NUR ---
Removed breakfast tray from room. Replaced colostomy bag due to it being full. Pt has no c/o. All prescribed medications given at this time. Pt requested to have Elkader medication do to having 10/10 left leg pain and states she does not want to be in more pain when she has physical therapy. Elkader 5-325mg provided.
[2021-02-28 09:01] LABS: ALBUMIN 2.5 g/dL (3.4-4.8); CALCIUM 8.8 mg/dL (8.4-11.0); CREATININE 0.56 mg/dL (0.55-1.30); POTASSIUM 4.6 mmol/L (3.5-5.1); TOTAL BILIRUBIN 0.5 mg/dL (0.0-1.0)
[2021-02-28] MEDS: DOCUSATE SODIUM 100 MG CAPSULE PO SCH ×2 (09:27→23:27)
[2021-02-28] MEDS: metFORMIN HCL 500 MG TABLET PO SCH (09:27)
--- NOTE | 2021-02-28 09:49 | NUR ---
Spoke w/ ANDREY Wong at [facility]-[phone]-she stated the patient must have medical necessity to continue to have her hospital stay covered. I spoke to [facility]- the patient will have to be re-evaluated in 10 days for admission-they do not know if she will continue to meet criteria for admission. I spoke to the son, Martin. He refused SNF, he stated the patient has no one to help her at home. I explained if the insurance denies the continued hospital stay, she could be responsible for the continued hospital stay. He stated he will talk to his mother.
[2021-02-28] MEDS: FERROUS GLUCONATE 324 MG TABLET PO SCH ×2 (10:24→21:00)
[2021-02-28] MEDS: HYDROcodone/ACETAMIN 5-325 MG TAB (NORCO/ VICODIN) PO PRN ×2 (10:25→23:27)
[2021-02-28] MEDS: ENOXAPARIN SODIUM 40 MG/0.4 ML SYRINGE SUBCUT SCH (10:27)
--- NOTE | 2021-02-28 10:36 | NUR ---
Discharge Planning: DCP faxed pt home health referral to [facility] , [facility], DCP to follow DME referral to [facility] for [facility], [facility]. [facility], [facility], [facility]. DCP to follow up. Addendum: 02/28/21 at 1704 by Shayy Sands DP DCP followed up [facility] -will see pt after on 03/12/21 after quarantine, [facility] -will accept pt, PT after quarantine 03/07/21 , [facility], need covid done Wednesday nurse to see Wednesday, PT after quarantine 5 days. [facility] not contracted, [facility]-needed DME order signed by Dr Bowden, BERNARDOP faxed to doctor and the faxed signed order to [facility]. Patient will be contacted for delivery.
--- NOTE | 2021-02-28 11:03 | NUR ---
Pt requested to urinate so a bed adame was provided. Once done bedpan was emptied and perineal care was provided. Pt has no c/o.
[2021-02-28] MEDS: ACETAMINOPHEN 325 MG TABLET PO PRN (12:49)
--- NOTE | 2021-02-28 12:52 | NUR ---
Pt is A&Ox4. Pt c/o left leg pain 06/17. Tylenol 650mg given. Accucheck done and blood sugar results were 168. Did not give any insulin to pt due to lack of appetite. Lunch was served at bedside but pt only ate 15% of her meal. Physical Therapist (Rayray) at bedside.
--- NOTE | 2021-02-28 14:11 | NUR ---
Received a phone call from Judith BALDERAS at [facility]-patient's in patient stay denied from 02/25/21 forward. Patient notified she needs to DC to SNF or home. She stated she will go to SNF when bed is available.
[2021-02-28] MEDS: TEMAZEPAM 15 MG CAPSULE PO PRN (23:27)
[2021-03-01] VITALS: BP_SYST 128
[2021-03-01] MEDS: NORMAL SALINE 5 ML DISP.SYRIN IVF SCH ×3 (06:08→20:42)
[2021-03-01] MEDS: LEVOTHYROXINE SODIUM 0.15 MG TABLET PO SCH (06:09)
[2021-03-01 08:00] VITALS: BP_SYST 122
--- NOTE | 2021-03-01 08:00 | NUR ---
initial notes awake and oriented, pain is controlled. on room air. denies any shortness of breath. Maintain on covid isolation. Call light within reach. will monitor.
[2021-03-01] MEDS: DOCUSATE SODIUM 100 MG CAPSULE PO SCH ×2 (10:09→20:42)
[2021-03-01] MEDS: ACETAMINOPHEN 325 MG TABLET PO PRN (10:09)
[2021-03-01] MEDS: FERROUS GLUCONATE 324 MG TABLET PO SCH ×2 (10:09→20:42)
[2021-03-01] MEDS: metFORMIN HCL 500 MG TABLET PO SCH (10:10)
[2021-03-01] MEDS: ENOXAPARIN SODIUM 40 MG/0.4 ML SYRINGE SUBCUT SCH (10:15)
--- NOTE | 2021-03-01 11:30 | NUR ---
Notes Working with physical therapy
[2021-03-01 12:00] VITALS: BP_SYST 132
--- NOTE | 2021-03-01 15:25 | NUR ---
left hip incision dressing changed done, incision is dry and no drainage noted, lara intact. applied iodine and covered with dry dressing
[2021-03-01 16:00] VITALS: BP_SYST 134
--- NOTE | 2021-03-01 17:28 | NUR ---
Blood sugar Patient blood sugar is 68, patient is asymptomatic, provided dinner tray at this time.
[2021-03-01 20:00] VITALS: BP_SYST 130
[2021-03-01] MEDS: HYDROcodone/ACETAMIN 5-325 MG TAB (NORCO/ VICODIN) PO PRN (20:42)
[2021-03-01] MEDS: TEMAZEPAM 15 MG CAPSULE PO PRN (20:42)
[2021-03-02] VITALS: BP_SYST 128
--- NOTE | 2021-03-02 | NUR ---
BS 212; Pt refused insulin administration at this time. R&B explained.
[2021-03-02 02:22] VITALS: BP_SYST 128
[2021-03-02] MEDS: NORMAL SALINE 5 ML DISP.SYRIN IVF SCH ×3 (06:16→21:14)
[2021-03-02] MEDS: LEVOTHYROXINE SODIUM 0.15 MG TABLET PO SCH (06:16)
[2021-03-02] MEDS: INSULIN REGULAR, HUMAN 100 UNITS/ML, 10 ML VIAL (humuLIN R) SUBCUT PRN ×2 (06:23→18:16)
[2021-03-02 08:00] VITALS: BP_SYST 111
[2021-03-02] MEDS: FERROUS GLUCONATE 324 MG TABLET PO SCH ×2 (09:16→21:15)
[2021-03-02] MEDS: metFORMIN HCL 500 MG TABLET PO SCH (09:16)
[2021-03-02] MEDS: DOCUSATE SODIUM 100 MG CAPSULE PO SCH ×2 (09:16→21:15)
[2021-03-02] MEDS ORDERED: NALOXONE HCL 0.4 MG/ML AMP (NARCAN) IVP PRN (09:30)
[2021-03-02] MEDS: HYDROcodone/ACETAMIN 10-325 MG TAB PO PRN (10:05)
[2021-03-02] MEDS: ENOXAPARIN SODIUM 40 MG/0.4 ML SYRINGE SUBCUT SCH (10:07)
[2021-03-02 12:00] VITALS: BP_SYST 100
[2021-03-02 16:00] VITALS: BP_SYST 101
[2021-03-02 20:00] VITALS: BP_SYST 110
[2021-03-02] MEDS: TEMAZEPAM 15 MG CAPSULE PO PRN (21:22)
[2021-03-03] VITALS: BP_SYST 105
[2021-03-03] MEDS: TEMAZEPAM 15 MG CAPSULE PO PRN ×2 (00:24→22:35)
[2021-03-03 04:00] VITALS: BP_SYST 123
[2021-03-03] MEDS: NORMAL SALINE 5 ML DISP.SYRIN IVF SCH ×3 (06:18→22:32)
[2021-03-03] MEDS: LEVOTHYROXINE SODIUM 0.15 MG TABLET PO SCH (06:24)
--- NOTE | 2021-03-03 06:25 | NUR ---
BS 218 @0600. Pt requesting to receive insulin around 0730 because she wants to continue sleeping at this time.Will endorse to on coming nurse.
--- NOTE | 2021-03-03 07:25 | NUR ---
PHYSICAL THERAPY CO-SIGN The Physical Therapy Progress Notes documented by Diesel Tractor Operator have been reviewed. Reviewed/Co-Signed by: Rolan Ovalles Documentation Done by: JANES CARR PTA Addendum: 03/03/21 at 0726 by Rolan Ovalles PT Amended: Links added.
--- NOTE | 2021-03-03 07:25 | NUR ---
PHYSICAL THERAPY CO-SIGN The Physical Therapy Progress Notes documented by Airport Manager have been reviewed. Reviewed/Co-Signed by: Rolan Ovalles Documentation Done by: RILEY GÓMEZ PTA Addendum: 03/03/21 at 0726 by Rolan Ovalles PT Amended: Links added.
[2021-03-03 07:29] LABS: BASOPHILS % (AUTO) 0.7 % (0.0-2.0); HEMATOCRIT 28.9 % (36-48); HEMOGLOBIN 9.7 g/dL (12.0-16.0); LYMPHOCYTES # (AUTO) 1.6 K/uL (1.0-5.5); LYMPHOCYTES % (AUTO) 26.3 % (20.5-51.5); MEAN CORPUSCULAR HEMOGLOBIN 28 pg (27-31); MEAN CORPUSCULAR HGB CONC 33 % (32-36); MEAN CORPUSCULAR VOLUME 84 fL (79.0-98.0); MONOCYTES # (AUTO) 0.4 K/uL (0.0-1.0); MONOCYTES % (AUTO) 6.8 % (1.7-9.3); NEUTROPHILS % (AUTO) 66.2 % (40.0-70.0); PLATELET COUNT (AUTO) 492 K/uL (130-430); RED BLOOD CELL COUNT(AUTO) 3.46 MIL/uL (4.2-6.2); RED CELL DISTRIBUTION WIDTH 14.7 % (9.0-15.0)
[2021-03-03 08:00] VITALS: BP_SYST 118
--- NOTE | 2021-03-03 08:00 | NUR ---
Initial notes Awake and oriented, has mild pain but controlled. denies any shortness of breath, on room air, afebrile. call light within reach. Enc. to call for help as needed.
[2021-03-03 08:07] LABS: ALBUMIN 2.8 g/dL (3.4-4.8); CALCIUM 9.3 mg/dL (8.4-11.0); CREATININE 0.61 mg/dL (0.55-1.30); POTASSIUM 4.4 mmol/L (3.5-5.1); TOTAL BILIRUBIN 0.4 mg/dL (0.0-1.0)
[2021-03-03] MEDS: DOCUSATE SODIUM 100 MG CAPSULE PO SCH ×2 (09:00→21:00)
[2021-03-03] MEDS: metFORMIN HCL 500 MG TABLET PO SCH (09:10)
[2021-03-03] MEDS: FERROUS GLUCONATE 324 MG TABLET PO SCH ×2 (09:10→21:00)
[2021-03-03] MEDS: ENOXAPARIN SODIUM 40 MG/0.4 ML SYRINGE SUBCUT SCH (09:11)
[2021-03-03] MEDS: ACETAMINOPHEN 325 MG TABLET PO PRN (09:25)
--- NOTE | 2021-03-03 10:30 | NUR ---
Notes- resting at this time, colostomy emptied.
[2021-03-03 12:00] VITALS: BP_SYST 125
[2021-03-03] MEDS: INSULIN REGULAR, HUMAN 100 UNITS/ML, 10 ML VIAL (humuLIN R) SUBCUT PRN ×2 (12:15→17:27)
--- NOTE | 2021-03-03 12:46 | NUR ---
Discharge Planning: DCP spoke to Joshua at [facility] shelter O2 order is being held, Floresita at [facility] followed up, is holding pending home. DCP re faxed pt clinicals [facility]. DCP to follow up
--- NOTE | 2021-03-03 13:00 | NUR ---
notes Sitiing in the chair, eating lunch. pain is controlled.
--- NOTE | 2021-03-03 15:44 | NUR ---
CM: Discussed dc to snf vs HH with pt . Informed that [facility] The next option, the patient is to go home with homehealth /PT. She agreed to go home but wanting a repeat Covid test. Stated dr. James told her to go home tomorrow. Informed pt , [facility] nurse will provide home f/u care/ PT. Discussed Covid positive precaution and precaution when she is at home. The Rapid Covid test and DME/FWW/[facility]SC ordered and carried out.
--- NOTE | 2021-03-03 16:00 | NUR ---
Notes- colostomy emptied and cleaned. all needs attended. Enc to call as needed.
[2021-03-03] MEDS: LIDOCAINE PATCH 5% 1 EA TP SCH (16:09)
[2021-03-03 16:29] VITALS: BP_SYST 122
--- NOTE | 2021-03-03 18:16 | NUR ---
closing notes eating dinner, no change in assessment.
[2021-03-03 20:00] VITALS: BP_SYST 140
--- NOTE | 2021-03-03 20:00 | NUR ---
SHIFT NOTE REC'D PT FROM AM NURSE, PT AOX4,NO DISTRESS OR DISCOMFORT NOTED, BREATHING EVEN AND UNLABORED, SATURATION ON ROOM AIR, VSS, BED IN LOWEST POSITION, CALL LIGHT WITHIN IMMEDIATE REACH, URINAL WITHIN REACH, EDUCATED PATIENT TO CALL FOR ASSISTANCE WHEN NEEDED, WILL CONTINUE TO MONITOR FOR ANY CHANGES IN CONDITION.
[2021-03-03] MEDS: HYDROcodone/ACETAMIN 10-325 MG TAB PO PRN (22:31)
[2021-03-04] VITALS: BP_SYST 143
--- NOTE | 2021-03-04 | NUR ---
NO CHANGES NOTED FROM THE PREVIOUS ASSESSMENT, WILL CONTINUE TO MONITOR.
[2021-03-04] MEDS: INSULIN REGULAR, HUMAN 100 UNITS/ML, 10 ML VIAL (humuLIN R) SUBCUT PRN ×2 (01:29→13:18)
--- NOTE | 2021-03-04 04:00 | NUR ---
NO S/S OF DISTRESS OR DISCOMFORT NOTED, BREATHING EVEN AND UNLABORED, PT STILL ON ISOLATION ROOM, WILL CONTINUE TO MONITOR.
[2021-03-04] MEDS: NORMAL SALINE 5 ML DISP.SYRIN IVF SCH ×2 (05:50→13:19)
[2021-03-04] MEDS: LEVOTHYROXINE SODIUM 0.15 MG TABLET PO SCH (06:58)
--- NOTE | 2021-03-04 07:24 | NUR ---
PHYSICAL THERAPY CO-SIGN The Physical Therapy Progress Notes documented by Refrigeration Plant Operator have been reviewed. Reviewed/Co-Signed by: Rolan Ovalles Documentation Done by: JANES CARR PTA Addendum: 03/04/21 at 0725 by Rolan Ovalles PT Amended: Links added.
--- NOTE | 2021-03-04 07:40 | NUR ---
SHIFT REPORT REPORT GIVEN TO CLAY LIAO FOR CONTINUITY OF CARE ALL QUESTIONS ANSWERED AND RN VERBALIZED UNDERSTANDING.
[2021-03-04 08:00] VITALS: BP_SYST 121
[2021-03-04] MEDS: metFORMIN HCL 500 MG TABLET PO SCH (10:15)
[2021-03-04] MEDS: FERROUS GLUCONATE 324 MG TABLET PO SCH (10:15)
[2021-03-04] MEDS: DOCUSATE SODIUM 100 MG CAPSULE PO SCH (10:15)
[2021-03-04] MEDS: ENOXAPARIN SODIUM 40 MG/0.4 ML SYRINGE SUBCUT SCH (10:16)
[2021-03-04] MEDS: ACETAMINOPHEN 325 MG TABLET PO PRN (10:20)
--- NOTE | 2021-03-04 10:30 | NUR ---
CM: S/W patient re DME to be delivered at [facility] between [phone] today, then she can call her family to pickup. She agreed for discharge home today once received the DME. [facility] will do the f/u at home. -- CLAY Mohan aware.
[2021-03-04] MEDS ORDERED: HYDR-3927 PO (11:18)
[2021-03-04] MEDS ORDERED: Lidocaine Patch 5% TP (11:18)
[2021-03-04 12:00] VITALS: BP_SYST 120
--- NOTE | 2021-03-04 15:13 | NUR ---
PHYSICAL THERAPY CO-SIGN The Physical Therapy Progress Notes documented by Dimensional Inspector have been reviewed. Reviewed/Co-Signed by: Rolan Ovalles Documentation Done by: JANES CARR PTA Addendum: 03/04/21 at 1514 by Rolan Ovalles PT Amended: Links added.
[2021-03-04 16:00] VITALS: BP_SYST 118
[2021-03-04 16:07] VITALS: BP_SYST 121
[2021-03-04] MEDS: LIDOCAINE PATCH 5% 1 EA TP SCH (16:45)
== END 2021-03-04 19:15 | disposition home health service (06) | DRG 480 ==
LOC: SED 03:46 → SMU 09:53
PROVIDERS: ADMIT Preventive Medicine Preventive Medicine/Occupational Environmental Medicine; ATTEND Preventive Medicine Preventive Medicine/Occupational Environmental Medicine
PROC: 0QS704Z Reposition Left Upper Femur with Internal Fixation Device, Open Approach (ICD-10-PCS; principal; 2021-02-19 13:47)
PROC: 30233N1 Transfusion of Nonautologous Red Blood Cells into Peripheral Vein, Percutaneous Approach (ICD-10-PCS; 2021-02-21)
DX: S72.22XA Displaced subtrochanteric fracture of left femur, initial encounter for closed fracture (principal); E43 Unspecified severe protein-calorie malnutrition; U07.1 COVID-19; E87.1 Hypo-osmolality and hyponatremia; N39.0 Urinary tract infection, site not specified; D64.9 Anemia, unspecified; E88.09 Other disorders of plasma-protein metabolism, not elsewhere classified; E83.52 Hypercalcemia; E11.65 Type 2 diabetes mellitus with hyperglycemia; W01.0XXA Fall on same level from slipping, tripping and stumbling without subsequent striking against object, initial encounter; D72.819 Decreased white blood cell count, unspecified; S82.839A Other fracture of upper and lower end of unspecified fibula, initial encounter for closed fracture; Z79.01 Long term (current) use of anticoagulants; Y93.89 Activity, other specified; Y92.89 Other specified places as the place of occurrence of the external cause; Y99.8 Other external cause status; Z68.23 Body mass index [BMI] 23.0-23.9, adult
CPT/HCPCS: 36415; 71045; 72170-TC; 73502; 73552; 76000; 80048; 80053; 81000; 81003; 82948; 82962; 83735; 84100; 85018; 85025; 85610-TC; 85651-TC; 85730-TC; 86140; 86886; 86900; 86901; 86920; 87040; 87081; 87086; 93005; 96361; 96374; 96375; 97110-GP; 97116-GP; 97163-GP; 97530-GP; 99285; C1713; C1769; J0131; J0690; J0696; J1650; J1815; J1885; J2001; J2250; J2270; J2405; J2704; J3010; J3465; J3490; J7030; J7060; P9021; U0003